=== PATIENT | male | born 1960 | race American Indian/Alaskan Native ===

== ENCOUNTER 2021-08-17 07:52 | Emergency (ER) | payer OTHER ==
--- NOTE | 2021-08-19 18:47 | Electrocardiograph Report ---
[facility] Test Date: 2021-08-17 Test Time: 07:57:59 Pat Name: CHAVEZ GARCIA Department: Room: Gender: M Resin Remover: LEILA : 1960 Requested By: ED DOC Order Number: [id number] Reading MD: Afia Mendoza Measurements Intervals [place] Rate: 70 P: 52 IL: 170 QRS: 75 QRSD: 91 T: 42 QT: 363 QTc: 393 Interpretive Statements Sinus rhythm Nonspecific ST changes No previous ECG available for comparison Electronically Signed On 08-19-2021 18:47:09 EDT by Afia Mendoza
== END 2021-08-17 13:06 | disposition left against medical advice (07) ==
LOC: ED 07:52
DX: R07.89 Other chest pain (principal); Z53.21 Procedure and treatment not carried out due to patient leaving prior to being seen by health care provider
CPT/HCPCS: 93005